=== PATIENT | female | born 2000 | race Two or more races ===

== ENCOUNTER 2019-07-30 07:25 | Emergency (ER) | payer OTHER ==
[~2019-07-30] VITALS: Ht 170.2 cm; Wt 59.0 kg
--- NOTE | 2019-07-30 07:26 | NUR ---
PT [id number] FROM HOME FOR GLF, R FOREARM LAC, R CHEEK REDNESS, PT IS AAOX4, NOT IN RESPIRATORY DISTRESS, HOOKED TO MONITOR, KEPT RESTED AND COMFORTABLE, WILL CONTINUE TO MONITOR.
--- NOTE | 2019-07-30 07:35 | NUR ---
AT BEDSIDE FOR EVAL
[2019-07-30] MEDS ORDERED: LIDOCAINE 1%-EPI 1:100,000 20 ML VIAL ONE (07:37)
--- NOTE | 2019-07-30 07:40 | NUR ---
CROP SUPERVISOR AT BEDSIDE FOR WOUND CLEANING AND LAC REPAIR SET UP.
--- NOTE | 2019-07-30 07:58 | NUR ---
CELLUL[employer] INSULATION HELPER AT BEDSIDE FOR XRAY.
[2019-07-30] MEDS ORDERED: LIDOCAINE 1%-EPI 1:100,000 50 ML VIAL IJ ONE (08:00)
--- NOTE | 2019-07-30 08:20 | NUR ---
SUTURING DONE BY .
--- NOTE | 2019-07-30 09:00 | NUR ---
Patient discharged to home in stable condition. Written and verbal after care instructions given. Patient verbalizes understanding of instruction.
[2019-07-30 09:04] VITALS: BP 118/62
== END 2019-07-30 09:07 | disposition home or self-care (01) ==
LOC: ER 07:26
DX: S51.811A Laceration without foreign body of right forearm, initial encounter (principal); S00.81XA Abrasion of other part of head, initial encounter; S60.312A Abrasion of left thumb, initial encounter; F41.9 Anxiety disorder, unspecified; W01.110A Fall on same level from slipping, tripping and stumbling with subsequent striking against sharp glass, initial encounter; Y93.89 Activity, other specified; Y92.89 Other specified places as the place of occurrence of the external cause; Y99.8 Other external cause status
CPT/HCPCS: 12004; 73090; 99283; A6403 ×2; J3490 ×2